=== PATIENT | male | born 1985 | race Caucasian/White ===

== ENCOUNTER 2020-11-19 13:22 | Emergency (ER) | payer OTHER, SELFPAY ==
[2020-11-19 13:29] VITALS: TEMP 98.5; BMI 25.0
[2020-11-19] MEDS ORDERED: LACTATED RINGERS SOLUTION 1,000 ML/1,000 ML INFUS.BAG IV STA (13:33)
[2020-11-19 13:59] LABS: BASO % 0.3 % (0-2.0); HEMATOCRIT 44.9 % (35.4-49); LYMPH % 41.5 % (8-40); MCH 27.5 pg (25.7-33.7); MCHC 33.4 g/dl (32.0-35.9); MEAN CELL VOLUME 82.2 fl (80-96); MEAN PLT VOLUME 9.8 fl (7.5-11.1); MONO % 9.7 % (3.8-10.2); NEUT % 47.5 % (42.8-82.8); PLATELET COUNT 180 K/MM3 (134-434); RBC 5.47 M/mm3 (4.00-5.60); RDW 13.6 % (11.9-15.9); WHITE BLOOD COUNT 6.6 K/mm3 (4.0-10.0)
[2020-11-19 14:16] LABS: POTASSIUM 4.1 mmol/L (3.5-5.1)
[2020-11-19 14:18] LABS: CALCIUM 9.3 mg/dL (8.5-10.1)
[2020-11-19 14:19] LABS: ALBUMIN 4.3 g/dl (3.4-5.0); BLOOD UREA NITROGEN 12.7 mg/dL (7-18)
[2020-11-19 14:22] LABS: CREATININE 0.9 mg/dL (0.55-1.3)
[2020-11-19 14:23] LABS: BILIRUBIN,TOTAL 0.4 mg/dL (0.2-1)
[2020-11-19 14:24] LABS: TOT PROT 8.1 g/dl (6.4-8.2)
[2020-11-19] MEDS ORDERED: ACETAMINOPHEN 500 MG TABLET (FP) PO ONE (14:40)
[2020-11-19] MEDS ORDERED: ACETAMINOPHEN 325 MG TABLET (FP) ONE (14:41)
[2020-11-19 15:21] VITALS: BP 132/96; PULSE 87
== END 2020-11-19 15:32 | disposition home or self-care (01) ==
LOC: JER 13:22
DX: R56.9 Unspecified convulsions (principal); W19.XXXA Unspecified fall, initial encounter
CPT/HCPCS: 36415; 70450-TC; 80053; 80164; 82962; 83605; 85025; 93005; 93010; 99285-25

== ENCOUNTER 2021-01-17 12:19 | Emergency (ER) | payer OTHER, SELFPAY ==
[2021-01-17] MEDS ORDERED: ACETAMINOPHEN 1000 MG/100 ML VIAL (NON FORMULARY) IVPB ONE (12:43)
[2021-01-17 13:11] VITALS: BP 130/86; PULSE 110; TEMP 98.9; BMI 25.5
[2021-01-17] MEDS ORDERED: ACETAMINOPHEN INJECTION 100 ML IVPB ONE (13:12)
[2021-01-17 13:45] LABS: BASO % 0.4 % (0-2.0); EOS % 1.1 % (0-4.5); HEMATOCRIT 44.8 % (35.4-49); HEMOGLOBIN 14.9 GM/dL (11.7-16.9); LYMPH % 36.2 % (8-40); MCH 27.6 pg (25.7-33.7); MCHC 33.4 g/dl (32.0-35.9); MEAN CELL VOLUME 82.7 fl (80-96); MONO % 7.8 % (3.8-10.2); NEUT % 54.5 % (42.8-82.8); PLATELET COUNT 194 K/MM3 (134-434); RBC 5.41 M/mm3 (4.00-5.60); RDW 13.9 % (11.9-15.9); WHITE BLOOD COUNT 6.9 K/mm3 (4.0-10.0)
[2021-01-17 14:11] LABS: CALCIUM 9.6 mg/dL (8.5-10.1)
[2021-01-17 14:12] LABS: ALBUMIN 4.2 g/dl (3.4-5.0); BLOOD UREA NITROGEN 12.7 mg/dL (7-18)
[2021-01-17 14:16] LABS: BILIRUBIN,TOTAL 0.4 mg/dL (0.2-1); TOT PROT 7.8 g/dl (6.4-8.2)
[2021-01-17] MEDS ORDERED: LIDOCAINE VISCOUS 2% ORAL/TOP 20 ML UNIT-DOSE CUP MM ONE (15:21)
[2021-01-17] MEDS ORDERED: LIDOCAINE VISCOUS 2% ORAL/TOP 20 ML UNIT-DOSE CUP ONE (15:59)
== END 2021-01-17 15:59 | disposition home or self-care (01) ==
LOC: JER 12:19
PROC: 3E0333Z Introduction of Anti-inflammatory into Peripheral Vein, Percutaneous Approach (ICD-10-PCS; principal; 2021-01-17)
DX: G40.89 Other seizures (principal); S02.2XXA Fracture of nasal bones, initial encounter for closed fracture
CPT/HCPCS: 36415; 70450-TC; 70486-TC; 72125-TC; 80053; 80164; 85025; 93005; 93010; 99285-25; J0131

== ENCOUNTER 2023-02-09 12:42 | Emergency (ER) | payer OTHER, SELFPAY ==
[2023-02-09] MEDS ORDERED: SODIUM CHLORIDE 1,000 ML IV STA (12:48)
[2023-02-09 12:54] VITALS: TEMP 98.3; BMI 25.5
[2023-02-09 13:19] LABS: BASO % 0.3 % (0-2.0); EOS % 1.7 % (0-4.5); HEMATOCRIT 44.9 % (35.4-49); HEMOGLOBIN 14.9 GM/dL (11.7-16.9); LYMPH % 49.4 % (8-40); MCH 26.9 pg (25.7-33.7); MCHC 33.2 g/dl (32.0-35.9); MONO % 12.6 % (3.8-10.2); PLATELET COUNT 209 10^3/uL (134-434); RBC 5.54 M/mm3 (4.00-5.60); RDW 13.8 % (11.9-15.9); WHITE BLOOD COUNT 12.4 K/mm3 (4.0-10.0)
[2023-02-09] MEDS ORDERED: DIVALPROEX NA *ER* EXTEND REL 500 MG TABLET.SA (FP) PO ONE (13:22)
[2023-02-09 13:23] LABS: CALCIUM 9.3 mg/dL (8.5-10.1)
[2023-02-09] MEDS ORDERED: LACTATED RINGERS SOLUTION 1000 ML INFUS.BAG IV ONE (13:23)
[2023-02-09 13:24] LABS: ALBUMIN 4.4 g/dl (3.4-5.0); BLOOD UREA NITROGEN 12.8 mg/dL (7-18)
[2023-02-09] MEDS ORDERED: DIVALPROEX SODIUM 500 MG TABLET E.C. ONE (13:25)
[2023-02-09 13:27] LABS: CREATININE 1.1 mg/dL (0.55-1.3)
[2023-02-09 13:28] LABS: BILIRUBIN,TOTAL 0.4 mg/dL (0.2-1); TOT PROT 8.5 g/dl (6.4-8.2)
[2023-02-09 14:21] LABS: MAGNESIUM 2.3 mg/dL (1.8-2.4)
[2023-02-09 15:32] VITALS: BP 154/84; PULSE 71; RESP 18
== END 2023-02-09 15:36 | disposition home or self-care (01) ==
LOC: JER 12:42
PROC: 3E0337Z Introduction of Electrolytic and Water Balance Substance into Peripheral Vein, Percutaneous Approach (ICD-10-PCS; principal; 2023-02-09)
DX: G40.909 Epilepsy, unspecified, not intractable, without status epilepticus (principal); R00.0 Tachycardia, unspecified; S00.03XA Contusion of scalp, initial encounter; W01.198A Fall on same level from slipping, tripping and stumbling with subsequent striking against other object, initial encounter; Y92.89 Other specified places as the place of occurrence of the external cause; Z20.822 Contact with and (suspected) exposure to COVID-19
CPT/HCPCS: 0241U-QW; 36415; 70450-TC; 72125-TC; 80053; 80164; 83735; 85025; 93005; 93010; 99285-25

== ENCOUNTER 2023-09-12 06:00 | Day surgery (SDC) | payer OTHER ==
[2023-09-12 13:27] VITALS: TEMP 97.8; BMI 24.5
[2023-09-12] MEDS ORDERED: DEXAMETHASONE SOD PHOSPHATE 10 MG/1 ML VIAL ONE (13:55)
[2023-09-12] MEDS ORDERED: LIDOCAINE HCL 1% PRESERVATIVE FREE - 30ML VIAL IJ ONE (14:01)
[2023-09-12] MEDS ORDERED: IOHEXOL 180 MG/1 ML ML IJ ONE (14:02)
[2023-09-12] MEDS ORDERED: DEXAMETHASONE SOD PHOSPHATE 10 MG/1 ML VIAL IVPUSH ONE (14:02)
[2023-09-12 14:25] VITALS: BP 136/90; PULSE 74; RESP 18
== END 2023-09-12 14:38 | disposition home or self-care (01) ==
LOC: JASU-SURG 06:00
PROVIDERS: ATTEND Pain Medicine Pain Medicine
PROC: 3E0R3BZ Introduction of Anesthetic Agent into Spinal Canal, Percutaneous Approach (ICD-10-PCS; 2023-09-12)
PROC: 3E0R33Z Introduction of Anti-inflammatory into Spinal Canal, Percutaneous Approach (ICD-10-PCS; principal; 2023-09-12 14:15)
DX: M54.16 Radiculopathy, lumbar region (principal)
CPT/HCPCS: 76000-TC-FY; J1100

== ENCOUNTER 2023-09-21 15:27 | Emergency (ER) | payer OTHER ==
[2023-09-21 15:32] VITALS: BP 146/97; PULSE 123; RESP 20; TEMP 98.2; BMI 24.3
[2023-09-21] MEDS ORDERED: SODIUM CHLORIDE 1,000 ML IV STA (15:32)
[2023-09-21 15:52] LABS: BASO % 0.6 % (0-2.0); EOS % 0.6 % (0-4.5); HEMOGLOBIN 15.2 GM/dL (11.7-16.9); LYMPH % 32.1 % (8-40); MCH 26.7 pg (25.7-33.7); MCHC 33.1 g/dl (32.0-35.9); MEAN CELL VOLUME 80.9 fl (80-96); MEAN PLT VOLUME 8.9 fl (7.5-11.1); MONO % 11.9 % (3.8-10.2); NEUT % 54.8 % (42.8-82.8); PLATELET COUNT 207 10^3/uL (134-434); RBC 5.69 M/mm3 (4.00-5.60); RDW 14.1 % (11.9-15.9); WHITE BLOOD COUNT 8.8 K/mm3 (4.0-10.0)
[2023-09-21 16:26] LABS: POTASSIUM 4.2 mmol/L (3.5-5.1)
[2023-09-21 16:29] LABS: ALBUMIN 3.9 g/dl (3.4-5.0); BLOOD UREA NITROGEN 18.7 mg/dL (7-18); CALCIUM 8.9 mg/dL (8.5-10.1); MAGNESIUM 2.5 mg/dL (1.8-2.4)
[2023-09-21 16:31] LABS: CREATININE 1.1 mg/dL (0.55-1.3)
[2023-09-21 16:33] LABS: BILIRUBIN,TOTAL 0.4 mg/dL (0.2-1); TOT PROT 7.7 g/dl (6.4-8.2)
== END 2023-09-21 17:43 | disposition home or self-care (01) ==
LOC: JER 15:27
PROC: 0HQ1XZZ Repair Face Skin, External Approach (ICD-10-PCS; principal; 2023-09-21)
PROC: 3E0337Z Introduction of Electrolytic and Water Balance Substance into Peripheral Vein, Percutaneous Approach (ICD-10-PCS; 2023-09-21)
DX: S01.01XA Laceration without foreign body of scalp, initial encounter (principal); R56.9 Unspecified convulsions; X58.XXXA Exposure to other specified factors, initial encounter
CPT/HCPCS: 36415; 70450-TC; 72125-TC; 80053; 80164; 83735; 85025; 93005; 93010; 99285-25